=== PATIENT | male | born 1985 | race Asian ===

== ENCOUNTER 2021-02-15 16:54 | Emergency (ER) | payer BC ==
[2021-02-15 16:59] VITALS: BP 138/75; PULSE 104; TEMP 97.8; BMI 22.7
== END 2021-02-15 19:22 | disposition home or self-care (01) ==
LOC: JER 16:54
DX: Z20.822 Contact with and (suspected) exposure to COVID-19 (principal)
CPT/HCPCS: 99283-25; C9803; U0003; U0005